=== PATIENT | female | born 1975 | race Caucasian/White ===

== ENCOUNTER → 2017-03-28 18:40 | Outpatient (CLI) | payer OTHER, SELFPAY ==
[2017-03-28 21:18] LABS: Chlamydia Trachomatis by PCR Negative (Negative); Neisserai gonorrhoeae by PCR Negative (Negative); Probe Check PASS; Sample Adequacy Control PASS; Specimen Processing Control PASS
== END ==
PROVIDERS: Visit Provider Nurse Practitioner Women's Health
DX: Z11.3 Encounter for screening for infections with a predominantly sexual mode of transmission (principal)
CPT/HCPCS: 87491; 87591

== ENCOUNTER → 2017-04-10 16:08 | Outpatient (CLI) | payer OTHER, SELFPAY ==
--- NOTE | 2017-04-10 16:10 | US_ITS ---
STUDY: ULTRASOUND TRANSVAGINAL CLINICAL: Female, 42 years old. Heavy menses TECHNIQUE: Transvaginal COMPARISON: None. FINDINGS: Uterus is enlarged, measuring 13.8 x 6.9 x 3.8 cm. At least 5 uterine fibroids are seen, the largest measuring 4.4 x 3.8 x 3.5 cm. Normal endometrial thickness measuring 7 mm. There are no endometrial masses, and there is no fluid in the endometrial cavity. There is a cervical nabothian cyst. Right ovary measures 3.9 x 2.2 x 1.8 cm. There are multiple right ovarian cysts, the largest measuring 1.7 x 1.6 x 1.3 cm. Normal left ovary, measuring 2.8 x 1.8 x 1.2 cm. . There is no free fluid in the pelvis. US/Transvaginal Non- IMPRESSION: Multiple uterine fibroids. Cervical nabothian cysts. Multiple right ovarian cysts, the largest measuring 1.7 x 1.6 x 1.3 cm. Electronically Signed: Patrice Hoyt MD at 20:59 EST , Service support ,
--- NOTE | 2017-04-10 16:10 | US_ITS ---
STUDY: ULTRASOUND TRANSVAGINAL CLINICAL: Female, 42 years old. Heavy menses TECHNIQUE: Transvaginal COMPARISON: None. FINDINGS: Uterus is enlarged, measuring 13.8 x 6.9 x 3.8 cm. At least 5 uterine fibroids are seen, the largest measuring 4.4 x 3.8 x 3.5 cm. Normal endometrial thickness measuring 7 mm. There are no endometrial masses, and there is no fluid in the endometrial cavity. There is a cervical nabothian cyst. Right ovary measures 3.9 x 2.2 x 1.8 cm. There are multiple right ovarian cysts, the largest measuring 1.7 x 1.6 x 1.3 cm. Normal left ovary, measuring 2.8 x 1.8 x 1.2 cm. . There is no free fluid in the pelvis. US/Pelvic (Non ) IMPRESSION: Multiple uterine fibroids. Cervical nabothian cysts. Multiple right ovarian cysts, the largest measuring 1.7 x 1.6 x 1.3 cm. Electronically Signed: Patrice Hoyt MD at 20:59 EST , Service support ,
== END ==
PROVIDERS: Visit Provider Nurse Practitioner Women's Health
DX: N92.0 Excessive and frequent menstruation with regular cycle (principal)
CPT/HCPCS: 76830; 76856; 93976

== ENCOUNTER → 2017-04-17 23:08 | Outpatient (CLI) | payer OTHER, SELFPAY ==
--- NOTE | 2017-04-17 | EMB_PTH ---
PATIENT: ERNESTO COFFMAN LOC: [facility] U#:[id number] AGE/SX: 50/F ROOM: RE04/17/[address]: EFREN Mai : 1975 BED: DIS: SPEC #: [id number] RECD: 04/17/17 22:08 STATUS: JOANNA BARRETT #: [id number] MARTIN: 04/17/17 00:[address]: Lyric Matos NP DEPT: SURGICAL PATHOLOGY RECD BY: Malcom Goldberg Tissues: Endometrium, NOS Procedures: Surgery Specimen Level IV HEADER OPERATION: Endometrial biopsy PRE-OP DIAGNOSIS: Abnormal uterine bleeding TISSUE SUBMITTED: Endometrial MICROSCOPIC DIAGNOSIS Endometrium, biopsy: Secretory endometrium. AM:antelmo 04/19/17 MICROSCOPIC DESCRIPTION Slides are reviewed. GROSS DESCRIPTION Received is one container labeled with the patient's name and not further designated. The specimen consists of multiple cores of dalal-brown soft tissue that in aggregate measure 2 x 1.3 x 0.3 cm. The specimen is totally submitted in one cassette. / ROBERTA:antelmo 04/18/17 TC:5 CPT: 87474
[2017-04-21 07:16] LABS: HPV APTIMA, High Risk Negative (Negative)
== END ==
PROVIDERS: Visit Provider Nurse Practitioner Women's Health
DX: Z12.4 Encounter for screening for malignant neoplasm of cervix (principal); N93.9 Abnormal uterine and vaginal bleeding, unspecified
CPT/HCPCS: 88175; 88305; G0145

== ENCOUNTER → 2017-05-04 17:10 | Outpatient (CLI) | payer OTHER, SELFPAY ==
--- NOTE | 2017-05-04 17:12 | HPBI_ITS ---
MAMMOGRAPHY - BILATERAL SCREENING REASON FOR EXAM: Female, 42 years old. Routine annual screening examination. PERTINENT HISTORY: Non-contributory. TECHNIQUE: Digital bilateral breast marv (3D mammographic acquisition) in the CC and MLO projections. 2-D mediolateral oblique (MLO) and craniocaudad (CC) views of both breasts were obtained. CAD: Full Field Digital Mammography with Computer Added Detection was performed. COMPARISON: No comparison mammograms available at this time. If any prior films become available, an addendum to this report can be generated. FINDINGS: Breast Composition: The breasts are heterogeneously dense, which may obscure small masses. There are no dominant masses or suspicious calcifications. Small bilateral benign appearing axillary lymph nodes. No other significant abnormalities are identified. HPBI/SCREENING MAMM (CAD), BILAT IMPRESSION: Negative screening mammogram. Yearly followup mammogram recommended. (A) ASSESSMENT CATEGORY: BIRADS Category 1: Negative. A letter regarding these results will be sent to the patient by the facility within 30 days. Approximately 10% of breast cancers are not detected by mammography. A normal mammogram should not delay biopsy of a clinically suspicious abnormality. [id number] Electronically Signed: Dawood Burnett MD at 8:02 EST Tel [phone], Service support ,
== END ==
PROVIDERS: Visit Provider Nurse Practitioner Women's Health
DX: Z12.31 Encounter for screening mammogram for malignant neoplasm of breast (principal)
CPT/HCPCS: 77063; 77067

== ENCOUNTER 2017-06-21 10:49 | Day surgery (SDC) | payer OTHER, SELFPAY ==
[2017-06-17 11:38] LABS: International Normalized Ratio 0.9; Prothrombin Time (Protime)PT. 12.4 SECONDS (11.7-14.9)
[2017-06-17 11:39] LABS: Hematocrit 36.9 % (37-47); Hemoglobin 11.7 g/dl (12.0-15.0); Mean Corp Hgb Conc 31.7 g/gl (32-36); Mean Corpuscular Hgb 25.5 pg (27.0-32.0); Mean Corpuscular Volume 80.6 fL (81-99); Mean Platelet Vol. 9.4 fl (6.2-12.0); Partial Thromboplast Time 28.5 Seconds (24.1-36.2); Platelet Count 295 K/mm3 (150-450); RBC Distribution Width CV 16.8 % (11.6-14.6); RBC Distribution Width SD 49.5 fl (35.1-43.9); Red Blood Count 4.58 M/mm3 (4.2-5.4); Scan Indicated on CBC? Y/N NO
[2017-06-17 12:01] LABS: AST(SGOT) 15 U/L (15-37); Alanine Aminotransfer ALT/SGPT 23 U/L (13-56); Albumin, Serum 3.5 g/dL (3.2-5.0); Alkaline Phosphatase 51 U/L (45-117); Bilirubin, Direct 0.13 mg/dL (0.00-0.30); Globulin 3.2 g/dL (2.2-4.2); Protein, Total 6.7 g/dL (6.4-8.2)
[2017-06-21] VITALS (12 sets, daily range): BP systolic 108–122; BP diastolic 63–81; PULSE 66–86; RESP 16–18; TEMP 36.1–36.6; O2SAT 94–99; BMI 29.5
--- NOTE | 2017-06-21 05:08 | PCM.HPOB.BLA ---
- Problem List (1) Abnormal uterine bleeding Status: Acute Comment: plan lavh bs cystoscopy (2) Uterine fibroid Status: Chronic Qualifiers: Comment: plan lavh bs cystosocpy History and Physical Date of Admission: 06/21/17 Vital Signs 05/12/17 Blood Pressure 121/76 05/12/17 Height 5 ft 5 in 05/12/17 Weight: 180 lb 2 oz 05/12/17 Body Mass Index (BMI) 29.9 05/12/17 Blood Pressure 121/76 05/12/17 Height 5 ft 5 in 05/12/17 Blood Pressure 121/76 Intake Visit Reasons: SURGICAL CONSULT Chief Complaint: Hyst Consult Is patient in pain?: No Allergies Penicillins Allergy (Verified 05/12/17 10:23) Angioedema Sulfa (Sulfonamide Antibiotics) Allergy (Verified 05/12/17 10:23) Angioedema mercury (elemental) Adverse Reaction (Verified 05/12/17 10:23) Other Medications ginkgo biloba 40 mg tablet 40 mg PO TID 03/28/17 [History Confirmed 05/12/17] vit B12 50 mcg-iodine 75 mcg-mag 100 xm-oilh-qqeiuldw-herb 193 capsule cap PO 03/28/17 [History Confirmed 05/12/17] Is last menstrual period known: Yes Last Menstral Period: 04/27/17 Post menopausal: No Patient : No : No PFSH Medical History Migraine (Chronic) Surgical History H/O tubal ligation (Resolved ~2000) History of appendectomy (Resolved ~1984) History of cholecystectomy (Resolved ~1998) History of tonsillectomy (Resolved ~1976) Family History Unknown No problems noted. Social History adopted: Yes number of children: 3 Smoking Status: Current every day smoker second hand exposure: No alcohol intake: never substance use type: does not use what type of physical activity do you participate in: walking frequency: 5-6 times per week seatbelt use: always do you feel safe at home: Yes HPI SURGICAL CONSULT: Details: ERNESTO COFFMAN is a 42 year old who presents for heavy vaginal bleeding. she has painful heavy menses increasing ove rthe last few months and has an enlarged multiple fibroid uterus on ultrasound. she was seen by melvina and referred for surgical management. patient wants to proceed with surgery. Female Reproductive History Last Menstral Period: 04/27/17 Questions: Metorrhagia: No, Sexually active: Yes Pregancy History 3 Elective abortions Hx Para 3 Spontaneous abortions Hx # Term Pregnancies 3 Ectopic pregnancies Hx # Pregnancies Multiple births # of living children 3 Past Pregnancies Del. Date Name GA/Weeks Outcome Route Bth Weight Infant Gen Labor Lgth Anesthesia Del Locatn Provider FOB 12/23/95 Eber 10/07/97 Leah 12/07/99 Jose ROS Const Constitutional: Denies poor appetite, headache(s), fever(s), increased appetite, weight gain, weight loss or fatigue Cardio Card: Denies chest pain Resp Resp: Denies dyspnea or cough GI GI: Reports as per HPI; denies vomiting, nausea, abdominal pain or constipation : Reports as per HPI; denies urinary urgency, vaginal discharge, urinary frequency, vaginal itching, vaginal odor, vaginal dryness, urinary incontinence, urinary hesitancy, difficulty urinating, painful urination or nipple discharge Skin Skin/Breast: Denies breast lump, breast pain, breast skin changes, nipple discharge or change in hair Exam Const General: cooperative, healthy appearing, comfortable, no acute distress, well developed Nutritional Appearance: average body habitus Orientation: alert [facility] Head: normal to inspection, normocephalic Neck Neck: normal visual inspection, trachea midline Thyroid: thyroid normal Resp Effort & Inspection: normal respiratory effort GI Inspection: normal to inspection, non-distended Palpation: soft, no hepatosplenomegaly General: bladder normal to palpation External Female Exam: normal external appearance, normal appearance of the urethra Urethra: normal appearance of the urethra, normal palpation, no discharge Speculum Exam - Vagina: normal appearance of the vagina, normal vaginal discharge Speculum Exam - Cervix: normal appearance of the cervix, nontender Bimanual Exam- Vagina & Uterus: bladder normal to palpation, No cervical tenderness, normal bimanual exam, uterine mobility normal, uterine consistency normal, normal cervical palpation, uterus non-tender, uterus enlarged (14 week size with multiple fibroids), uterus nodular Bimanual Exam- Adnexa, other: normal adnexae, adnexae mobile, no adnexal masses, pelvic support normal Pelvic Support: normal Skin General: no rashes or lesions noted Assessment & Plan Problems 1. Abnormal uterine bleeding N93.9 plan lavh bs cystoscopy 2. Intramural and subserous leiomyoma of uterus D25.1; D25.2 plan lavh bs cystosocpy Plan plan lavh bs cystoscopy discussed surgical risks including risks of anesthesia, infection, bleeding, injury to bowel, bladder or blood vessels, and patient wishes to proceed with surgery. Coding Level of Care Code Off vis,est,level 4 Diagnoses Abnormal uterine bleeding N93.9 Intramural and subserous leiomyoma of uterus D25.1; D25.2 Uterine leiomyoma location: intramural and subserous 06/21/17 I have seen the patient and there are no clinically relevant updates that need to be made
[2017-06-21] MEDS: Phenazopyridine 95 MG Tablet PO (11:31)
--- NOTE | 2017-06-21 13:15 | HYST_PTH ---
PATIENT: ERNESTO COFFMAN LOC: [facility] U#:[id number] AGE/SX: 42/F ROOM: RE06/21/[address]: Dr. Becky Zavala MD : 1975 BED: DIS: 06/22/2017 SPEC #: [id number] RECD: 06/21/17 16:17 STATUS: JOANNA BARRETT #: [id number] MARTIN: 06/21/17 13:[address]: Becky Zavala DEPT: SURGICAL PATHOLOGY RECD BY: Rajesh Mercedes ENTERED: 06/22/17 08:56 SP TYPE: HYSTERECT OTHR DR: No Primary Care Phys Tissues: Uterus, NOS Procedures: Surgery Specimen Level V HEADER OPERATION: Laparoscopic assisted vaginal hysterectomy, bilateral salpingectomy PRE-OP DIAGNOSIS: Abnormal uterine bleeding, uterine fibroid TISSUE SUBMITTED: Uterus, cervix, bilateral fallopian tubes MICROSCOPIC DIAGNOSIS Uterus, hysterectomy: Cervix ? nabothian cysts and mild chronic inflammation. Endometrium ? proliferative endometrium. Myometrium ? leiomyomas and focal superficial adenomyosis. Right and left fallopian tubes ? no pathologic change. AM:antelmo 06/23/17 MICROSCOPIC DESCRIPTION Slides are reviewed. GROSS DESCRIPTION Received in fixative is one container labeled with the patient's name and designated uterus. The specimen consists of a uterus with attached cervix and portions of right and left fallopian tubes. The uterus with cervix measures 11.5 x 7.5 x 7 cm and weighs 247.2 gm. The ectocervix is oval in contour. The endocervical canal measures 3.5 cm in length and is grossly unremarkable. The triangular endometrial cavity measures 6 x 3.3 cm. The endometrium is light dalal, velvety and glistening and measures up to 0.2 cm in thickness. The myometrium measures 2.5 cm in average thickness and is distorted by multiple spherical rubbery nodules ranging in size from 0.5 to 2.5 cm in greatest dimension. The nodules are intramural, subserosal and submucosal in location. Cut sections of the nodules reveal a whorled appearance without areas of cyst formation or necrosis. The right fallopian tube appears to be discontinuous in its distal portion and measures 3 cm in length and 0.6 cm in average diameter. A normal fimbriated is visible. The left fallopian tube is similar in appearance and measures 3 cm in length and 0.7 cm in average diameter. Armhole Baster Hand sections are submitted as follows: 1 - anterior cervix, 2 - posterior cervix, 3 & 4 - anterior uterine wall, 5 & 6 - posterior uterine wall, 7 ? largest myometrial mass, 8 ? second largest myometrial mass, 9 ? third largest myometrial mass, 10 ? right and left fallopian tubes, right fallopian tube inked in black ink. / AM:antelmo 06/22/17 TC:1 CPT: 31586
[2017-06-21] MEDS: Clindamycin 900 MG/50 ML BAG 75 MG IV (13:43)
[2017-06-21] MEDS: Vasopressin 20 UNITS/ML Vial (14:30)
[2017-06-21] MEDS: Bupivacaine Mpf 0.5% 30 ML VIAL (15:10)
[2017-06-21] MEDS: Ketorolac 30 MG/ML Syringe IV ×2 (17:53→23:53)
[2017-06-21] MEDS: Lactated Ringers 1,000 ML 125 ML IV (19:31)
[2017-06-21] MEDS: Ondansetron 4 MG/2 ML Vial IV (19:51)
[2017-06-21] MEDS: Acetaminophen 500 MG Tablet 1000 MG PO (21:14)
[2017-06-21] MEDS: 0.9% Normal Saline 1,000 ML 500 ML IV (21:16)
[2017-06-22 03:00] VITALS: BP 101/65; PULSE 83; RESP 16; TEMP 37.2; O2SAT 95
--- NOTE | 2017-06-22 04:16 | PCM.OPRPT ---
Problem List (1) Abnormal uterine bleeding Status: Acute Comment: plan lavh bs cystoscopy (2) Uterine fibroid Status: Chronic Qualifiers: Comment: plan lavh bs cystosocpy Report of Operation Date of Procedure: 06/21/17 Pre-Operative Diagnosis: aub fibroids Post-Operative Diagnosis: same Surgery/Procedure Performed:: lavh bs cystoscopy Description of Surgical Findings:: enlarged uterus beadworker: Surjit Lundberg Type of Anesthesia:: General Special Medications: none Specimen's removed: uterus tubs Drains: shipley Estimated Blood Loss (mL): 150 Fluids Replaced: crystalloid Description of Procedure: Patient received preoperative antibiotics and SCDs were on preoperatively. Patient was taken back to the operating room and placed in the dorsal lithotomy position. General anesthesia was induced and patient was prepped and draped in normal sterile fashion. Uterine manipulator was placed inside the uterus and Shipley catheter placed in the bladder. The umbilicus was grasped with towel clamps and an intraumbilical incision was made after injecting with quarter percent Marcaine and a Veress needle entered into the abdomen confirmed to be intra-abdominal with a low opening pressure. Abdomen was insufflated with CO2 gas and the Veress needle removed and the 5 mm trocar was placed under direct visualization without complication. Right and left lower quadrants were transilluminated and injected with quarter percent Marcaine and 5 mm ports placed under direct visualization. Pelvis was well visualized see operative findings for additional information. Bilateral fallopian tubes were identified and transected with the LigaSure device across the mesosalpinx to the level of the utero-ovarian ligament which was also transected with the LigaSure device. The broad ligament was opened up by transecting the round ligament bilaterally and skeletonizing the uterine vessels bilaterally and creating a bladder flap using the LigaSure device. The uterine arteries were transected bilaterally with good visualization of the bladder and the ureters were seen to be inferior lateral to the operative area. Attention was then paid to the vaginal portion of the procedure and the cervix was grasped with Crispin clamps and circumferentially injected with dilute vasopressin. A circumferential incision was made and the vaginal mucosa was mobilized off posteriorly and the cul-de-sac entered into sharply and a longneck speculum placed. The anterior cul-de-sac was then identified and entered into sharply. The uterosacral ligaments were clamped cut and suture ligated with 0 Monocryl bilaterally followed by the cardinal ligaments which were clamped cut and suture ligated bilaterally with 0 Monocryl. The uterus serially descended and was removed without difficulty with minimal morcellation. Pelvic sidewall pedicles were checked and noted to have excellent hemostasis. The vaginal mucosa was reapproximated incorporating the posterior peritoneum. This was reapproximated using 0 Vicryl [id number] sutures. Excellent hemostasis was noted. The cystoscopy was then performed and bilateral ureteral strong spray was noted and the bladder was noted to have no abnormality or lesions seen. Shipley catheter was replaced and then attention paid to the abdominal portion of the procedure again. The pelvis and cul-de-sac was well visualized and no significant active bleeding noted but some raw areas were seen on the peritoneum and therefore Marco Antonio was applied. Pressure was taken down and the areas visualized and noted of excellent hemostasis. All ports were removed under direct visualization without complication and the abdomen was desufflated of air. The instruments removed from the abdomen and the vagina vaginal sweep was negative. Port sites on the abdomen were closed with 4-0 Monocryl interrupted sutures and Steri's and windows were applied. She was awoken and taken recovery in stable condition. Grafts/Implants Used: marco antonio - Complications none - Admit VTE Documentation VTE Present on Admission: No VTE Mechan Device Prophylaxis: SCD's
--- NOTE | 2017-06-22 04:19 | OP.PCM_ITS ---
Problem List (1) Abnormal uterine bleeding Status: Acute Comment: plan lavh bs cystoscopy (2) Uterine fibroid Status: Chronic Qualifiers: Comment: plan lavh bs cystosocpy Report of Operation Date of Procedure: 06/21/17 Pre-Operative Diagnosis: aub fibroids Post-Operative Diagnosis: same Surgery/Procedure Performed:: lavh bs cystoscopy Description of Surgical Findings:: enlarged uterus arbor press operator: Surjit Lundberg Type of Anesthesia:: General Special Medications: none Specimen's removed: uterus tubs Drains: shipley Estimated Blood Loss (mL): 150 Fluids Replaced: crystalloid Description of Procedure: Patient received preoperative antibiotics and SCDs were on preoperatively. Patient was taken back to the operating room and placed in the dorsal lithotomy position. General anesthesia was induced and patient was prepped and draped in normal sterile fashion. Uterine manipulator was placed inside the uterus and Shipley catheter placed in the bladder. The umbilicus was grasped with towel clamps and an intraumbilical incision was made after injecting with quarter percent Marcaine and a Veress needle entered into the abdomen confirmed to be intra-abdominal with a low opening pressure. Abdomen was insufflated with CO2 gas and the Veress needle removed and the 5 mm trocar was placed under direct visualization without complication. Right and left lower quadrants were transilluminated and injected with quarter percent Marcaine and 5 mm ports placed under direct visualization. Pelvis was well visualized see operative findings for additional information. Bilateral fallopian tubes were identified and transected with the LigaSure device across the mesosalpinx to the level of the utero-ovarian ligament which was also transected with the LigaSure device. The broad ligament was opened up by transecting the round ligament bilaterally and skeletonizing the uterine vessels bilaterally and creating a bladder flap using the LigaSure device. The uterine arteries were transected bilaterally with good visualization of the bladder and the ureters were seen to be inferior lateral to the operative area. Attention was then paid to the vaginal portion of the procedure and the cervix was grasped with Crispin clamps and circumferentially injected with dilute vasopressin. A circumferential incision was made and the vaginal mucosa was mobilized off posteriorly and the cul-de- sac entered into sharply and a longneck speculum placed. The anterior cul-de- sac was then identified and entered into sharply. The uterosacral ligaments were clamped cut and suture ligated with 0 Monocryl bilaterally followed by the cardinal ligaments which were clamped cut and suture ligated bilaterally with 0 Monocryl. The uterus serially descended and was removed without difficulty with minimal morcellation. Pelvic sidewall pedicles were checked and noted to have excellent hemostasis. The vaginal mucosa was reapproximated incorporating the posterior peritoneum. This was reapproximated using 0 Vicryl figure-of- eight sutures. Excellent hemostasis was noted. The cystoscopy was then performed and bilateral ureteral strong spray was noted and the bladder was noted to have no abnormality or lesions seen. Shipley catheter was replaced and then attention paid to the abdominal portion of the procedure again. The pelvis and cul-de-sac was well visualized and no significant active bleeding noted but some raw areas were seen on the peritoneum and therefore Marco Antonio was applied. Pressure was taken down and the areas visualized and noted of excellent hemostasis. All ports were removed under direct visualization without complication and the abdomen was desufflated of air. The instruments removed from the abdomen and the vagina vaginal sweep was negative. Port sites on the abdomen were closed with 4-0 Monocryl interrupted sutures and Steri's and windows were applied. She was awoken and taken recovery in stable condition. Grafts/Implants Used: marco antonio - Complications none - Admit VTE Documentation VTE Present on Admission: No VTE Mechan Device Prophylaxis: SCD's
--- NOTE | 2017-06-22 04:29 | PCM.DC.VHY ---
Discharge Diet: No Restrictions Discharge Activity: Return to Normal Activity, May Not Drive, May Shower May resume sexual activity in: 6-8 weeks Call your doctor if your incision/area has: Continuous Slow Oozing, Sudden Increased Bleeding, Increased Pain/ Swelling, Increased Redness, Foul Smelling Discharge Call your doctor if you observe: Fever of 101 or Higher, Inability to urinate, Inability to have a bowel movement, Using more than one pad per hour Allergies/Adverse Reactions: Allergies Penicillins Allergy (Verified 06/14/17 14:10) Angioedema Sulfa (Sulfonamide Antibiotics) Allergy (Verified 06/14/17 14:10) Angioedema mercury (elemental) Adverse Reaction (Verified 06/14/17 14:10) Other Medications to take at Discharge vit B12 50 mcg-iodine 75 mcg-mag 100 sx-byis-ebpeculx-herb 193 capsule 1 cap PO DAILY 03/28/17 Naproxen [Naprosyn] 250 - 500 mg PO Q8H PRN PRN #30 tab 06/22/17 Oxycodone HCl/Acetaminophen [Percocet 5-325] 2 tablet PO Q4H PRN PRN 7 Days #28 tablet 06/22/17 The following prescriptions were given: Oxycodone HCl/Acetaminophen [Percocet 5-325] 2 tablet PO Q4H PRN PRN 7 Days #28 tablet PRN Reason: Moderate-Severe pain Naproxen [Naprosyn] 250 - 500 mg PO Q8H PRN PRN #30 tab PRN Reason: MILD PAIN Primary Care Physician: Care Physician,No Primary [Primary Care Provider] - Please Follow Up With: Becky Zavala MD - [phone]
[2017-06-22] MEDS: Lactated Ringers 1,000 ML 125 ML IV (04:38)
[2017-06-22 06:21] LABS: Hematocrit 32.1 % (37-47); Hemoglobin 10.7 g/dl (12.0-15.0); Mean Corp Hgb Conc 33.3 g/gl (32-36); Mean Corpuscular Hgb 26.6 pg (27.0-32.0); Mean Corpuscular Volume 79.9 fL (81-99); Mean Platelet Vol. 10.2 fl (6.2-12.0); Platelet Count 287 K/mm3 (150-450); RBC Distribution Width CV 16.3 % (11.6-14.6); RBC Distribution Width SD 46.9 fl (35.1-43.9); Red Blood Count 4.02 M/mm3 (4.2-5.4); White Blood Count 12.1 K/mm3 (4.4-11.0)
[2017-06-22 06:32] LABS: Scan Indicated on CBC? Y/N NO
[2017-06-22] MEDS: Acetaminophen 500 MG Tablet 1000 MG PO (06:49)
[2017-06-22] MEDS: Ketorolac 30 MG/ML Syringe IV (06:50)
[2017-06-22 07:04] VITALS: O2SAT 94
[2017-06-22 08:20] VITALS: BP 103/64; PULSE 62; RESP 16; TEMP 37.2; O2SAT 97
== END 2017-06-22 11:43 | disposition home or self-care (01) ==
LOC: SDC 10:51 → AC 10:51 → MS3 06-22 09:23
PROVIDERS: Visit Provider Obstetrics & Gynecology
PROC: 0UT9FZZ Resection of Uterus, Via Natural or Artificial Opening With Percutaneous Endoscopic Assistance (ICD-10-PCS; CPT 58552; principal; 2017-06-21 12:50)
DX: D25.1 Intramural leiomyoma of uterus (principal); D25.2 Subserosal leiomyoma of uterus; N88.8 Other specified noninflammatory disorders of cervix uteri; N80.0 Endometriosis of uterus; F17.200 Nicotine dependence, unspecified, uncomplicated
CPT/HCPCS: 00940; 58552; 36415; 80076; 85027; 85610; 85730; 86850; 86900; 88307; 97802; J7030; J7120; J2405

== ENCOUNTER → 2017-07-05 09:34 | Outpatient (CLI) | payer OTHER, SELFPAY ==
[2017-07-05 12:29] LABS: Absolute Lymphocyte Count 1.52 X10^3/ul (0.83-4.51); Absolute Neutrophil Count 5.6 X10^3/uL (2.0-7.7); Basophil# 0.03 X10^3/uL; Basophil% 0.4 % (0-1); Eosinophil# 0.23 X10^3/uL; Eosinophils% 2.9 % (0-5); Hematocrit 34.8 % (37-47); Hemoglobin 11.3 g/dl (12.0-15.0); Lymphocyte # 1.52 X10^3/ul (4.0); Lymphocyte % 19.4 % (19-41); Mean Corp Hgb Conc 32.5 g/gl (32-36); Mean Corpuscular Hgb 25.8 pg (27.0-32.0); Mean Corpuscular Volume 79.5 fL (81-99); Mean Platelet Vol. 10.3 fl (6.2-12.0); Monocyte% 6.4 % (0-10); Neutrophil # 5.56 X10^3/uL (2.7-7.7); Neutrophil % 70.8 % (47-70); Platelet Count 346 K/mm3 (150-450); RBC Distribution Width CV 16.4 % (11.6-14.6); RBC Distribution Width SD 46.8 fl (35.1-43.9); Red Blood Count 4.38 M/mm3 (4.2-5.4); White Blood Count 7.9 K/mm3 (4.4-11.0)
[2017-07-05 12:32] LABS: POSITIVE COUNT NO; POSITIVE DIFFERENTIAL NO; POSITIVE MORPHOLOGY NO
== END ==
PROVIDERS: Visit Provider Obstetrics & Gynecology
DX: R07.9 Chest pain, unspecified (principal)
CPT/HCPCS: 85025; 85379

== ENCOUNTER → 2017-07-06 08:57 | Outpatient (CLI) | payer OTHER, SELFPAY ==
--- NOTE | 2017-07-06 08:59 | EKG12_ITS ---
Test Reason : CP Blood Pressure : / mmHG Vent. Rate : 064 BPM Atrial Rate : 064 BPM P-R Int : 146 ms QRS Dur : 072 ms QT Int : 374 ms P-R-T Axes : 050 072 060 degrees QTc Int : 385 ms Normal sinus rhythm with sinus arrhythmia Normal ECG Confirmed by ALEE MILLER, YEVGENIY ([id number]), tape editor MANNIE MENDEZ ([id number]) on 07/07/2017 2:00:24 PM Referred By: Harvinder Gonzalez Confirmed By:YEVGENIY VICKERS MD
== END ==
PROVIDERS: Family Provider Nurse Practitioner Family; PCP Nurse Practitioner Family; Visit Provider Nurse Practitioner Family
DX: R07.9 Chest pain, unspecified (principal)
CPT/HCPCS: 93005

== ENCOUNTER → 2017-07-07 08:02 | Outpatient (CLI) | payer OTHER, SELFPAY ==
--- NOTE | 2017-07-07 08:03 | CT_ITS ---
STUDY: CTA CHEST REASON FOR EXAM: Female, 42 years old. Left upper chest pain and elevated d-dimer. Recent hysterectomy. RADIATION DOSAGE (If Supplied By Facility): CTDIvol = ( 14.21 ) mGy, DLP = ( 520.32 ) mGycm TECHNIQUE: The examination was performed with the intravenous administration of 100mL ml of Isovue 370 contrast material. Post-processing of the angiographic images was performed, with multiplanar reformation and 3D reconstruction. Individualized dose optimization techniques were used for this CT. COMPARISON: None. FINDINGS: Normal enhancement of the main pulmonary artery and right and left pulmonary arteries. Normal enhancement of the bilateral peripheral pulmonary arteries. There is no demonstrated pulmonary embolism. Normal thoracic aorta and visualized great vessels. There is no demonstrated aortic dissection. Normal heart and pericardium. Normal mediastinum. Normal hilar regions. Normal visualized trachea and bronchi. The lungs are well expanded. Minimal increased markings in the anterior lateral aspect of the right middle lobe suggestive of mild atelectasis. Normal pleura. Normal chest wall structures. Normal osseous structures. The patient is status post cholecystectomy. CT/CTA Chest W/WO Contrast IMPRESSION: Findings suggestive of mild right middle lobe atelectasis. Electronically Signed: Dawood Burnett MD at 9:18 EDT Tel [phone], Service support ,
== END ==
PROVIDERS: Family Provider Nurse Practitioner Family; PCP Nurse Practitioner Family; Visit Provider Nurse Practitioner Family
DX: R79.89 Other specified abnormal findings of blood chemistry (principal); R06.02 Shortness of breath; R07.9 Chest pain, unspecified
CPT/HCPCS: 71275; Q9967

== ENCOUNTER → 2021-01-20 16:01 | Outpatient (CLI) | payer BC, SELFPAY ==
[2021-01-20 16:35] LABS: Absolute Lymphocyte Count 2.09 X10^3/uL (0.83-4.51); Absolute Neutrophil Count 6.5 X10^3/uL (2.0-7.7); Basophil# 0.05 X10^3/uL; Basophil% 0.5 % (0-1); Eosinophils% 2.1 % (0-5); Hematocrit 43.3 % (37-47); Hemoglobin 14.9 g/dL (12.0-15.0); Lymphocyte # 2.09 X10^3/ul (0.83-4.51); Mean Corp Hgb Conc 34.4 g/dL (32-36); Mean Corpuscular Hgb 31.4 pg (27.0-32.0); Mean Corpuscular Volume 91.2 fL (81-99); Mean Platelet Vol. 9.8 fl (6.2-12.0); Monocyte# 0.66 X10^3/uL; Monocyte% 6.9 % (0-10); NRBC Flagged by Analyzer 0 % (0-5); Neutrophil # 6.49 X10^3/uL (2.7-7.7); Neutrophil % 68.2 % (47-70); Platelet Count 252 K/mm3 (150-450); RBC Distribution Width CV 12.7 % (11.6-14.6); RBC Distribution Width SD 42.3 fl (35.1-43.9); Red Blood Count 4.75 M/mm3 (4.2-5.4); White Blood Count 9.5 K/mm3 (4.4-11.0)
[2021-01-20 17:10] LABS: AST(SGOT) 16 U/L (15-37); Alanine Aminotransfer ALT/SGPT 24 U/L (13-56); Albumin, Serum 3.5 g/dL (3.2-5.0); Alkaline Phosphatase 46 U/L (45-117); Anion Gap 6 (5-15); BUN 12 mg/dL (7-18); BUN/Creat Ratio 13.9 RATIO (10-20); Calcium,Total 8.8 mg/dL (8.5-10.1); Chloride 107 mmol/L (98-107); Cholesterol 167 mg/dL (200); Creatinine, Serum 0.87 mg/dL (0.55-1.02); EST Glomerular Filtration Rate 75 mL/min (>60); Est Glom Filt Rate - Afr Amer 90 mL/min (>60); Globulin 3.5 g/dL (2.2-4.2); Glucose 99 mg/dL (74-106); High Density Lipoprotein 51 mg/dL; Potassium 3.6 mmol/L (3.5-5.1); Sodium Level 138 mmol/L (136-145); Triglycerides 75 mg/dL; Very Low Density Lipoprotein 15 mg/dL (5-40)
== END ==
PROVIDERS: PCP Nurse Practitioner Family; Visit Provider Internal Medicine
DX: Z00.00 Encounter for general adult medical examination without abnormal findings (principal)
CPT/HCPCS: 36415; 80053; 80061; 85025

== ENCOUNTER → 2021-08-02 | Outpatient (CLI) | payer BC, SELFPAY ==
--- NOTE | 2021-08-02 16:09 | RAD_ITS ---
STUDY: X-RAY - RIGHT KNEE REASON FOR EXAM: Female, 46 years old. Injury. Patellar pain. TECHNIQUE: 4 view(s) of the knee. COMPARISON: None. FINDINGS: Normal visualized distal femur. Normal visualized proximal tibia and fibula. Normal proximal tibiofibular articulation. Mild medial compartmental arthrosis. Normal lateral femorotibial compartment. Mild arthrosis of the patellofemoral compartment. The soft tissue structures are unremarkable. RAD/Knee 4 or More Views IMPRESSION: Mild medial and patellofemoral compartmental arthrosis. No acute abnormality, chondrocalcinosis or erosive changes. Electronically Signed: Daniel Grant MD at 14:07 EDT ,
[2021-08-02 17:11] LABS: T4 Free Direct 1.14 ng/dL (0.76-1.46); Thyroid Stim Hormone (TSH) 1.47 uIU/mL (0.358-3.74)
== END | disposition home or self-care (01) ==
PROVIDERS: PCP Nurse Practitioner Family; Referring Provider Physician Assistant; Visit Provider Physician Assistant
DX: M25.561 Pain in right knee (principal); Z13.29 Encounter for screening for other suspected endocrine disorder
CPT/HCPCS: 36415; 73564; 84439; 84443

== ENCOUNTER 2021-08-17 15:57 | Outpatient (RCR) | payer BC, SELFPAY ==
--- NOTE | 2021-08-25 10:12 | HP.PTEVAL ---
Patient's Visit Information ERNESTO COFFMAN is a 46 year old F referred to Physical Therapy by [facility] with a diagnosis of L IT band syndrome with greater trochanteric bursitis, patellar tendonitis. Date of Evaluation: 08/17/21 Physical Therapist: Julio Cartagena DPT - Visit Plan Frequency: 2x /Week Duration: 4 Weeks Plan: Start with inhibition to L TFL/IT band, glute med/max strengthening, TFL and HS stretching. - Subjective Pt. is here today for her initial evaluation with diagnosis of L IT band syndrome with greater trochanteric bursitis, patellar tendonitis. Pt. reports having increased symptoms for ~5 weeks now, which is now effecting her ability to complete her gym work outs. She reports pain at her lateral L knee, L anterior knee and lateral hip at times. She reports having pain with lying on her L side, any LB lifting and elliptical. She denies mech of injury. She reports increased pain with standing, walking, stairs, squatting. Denies N/T. Pt. reports symptoms that increase throughout the day. She is hopeful to reduce symptoms in order to get back to gym exercises without limitations. - Pain L knee Pain Intensity (Out of 10): 2 Pain Intensity Range: 0, 6 L hip Pain Intensity (Out of 10): 1 Pain Intensity Range: 0, 4 - Objective POSTURE: Pt. has decent posture in stance. No shifting noted, normal wt. shift between B Les. PALPATION: tenderness at lateral insertion of IT band at knee, patellar tendon, and greater trochanter on L side. Mild piriformis pain noted as well. No pain noted throughout lumbar spine. No stiffness to lumbar spine with spring testing this date. NEURO: Pt. has normal sensation to light and sharp touch. Pt. has normal reflexes bilaterally. Pt. is able to rise on heels and toes without issues. ROM: Lumbar spine: full ROM without increase in symptoms. R hip: normal no pain with testing. L hip: flexion no issues, abd no issues, ext no issues. Tight HS and tight IT band noted. She also has tightness in L piriformis region as well. Normal L knee ROM, mild pain noted at final 10deg of extension on lateral aspect. MMT: Pt. has decent strength throughout BLEs. Pt. has slight weakness in L glute medius and glute asia. No pain with testing today. GAIT: pt. has fairly normal gait pattern, no antalgic pattern noted. Pt. reports mild increase in symptoms during stance phase. SQUAT: Pt. has increased lateral wt. shift to R side in stance. (noted pain at initial flexion and at ~100deg of flexion). STAIRS: normal reciprocal pattern noted. no pain 1 HR. - Special Tests L Hip Scour: Negative L Hip LILIAN - Intraarticular Pathology: Negative L Hip FADDIR - Labrum: Negative L Hip Trendelenberg - Glut Medius: Negative L Hip Razia - IT Band: Positive L Knee Teri - Meniscus: Negative L Knee Disco Test - Meniscus: Negative L Knee Valgus - MCL: Negative L Knee Varus - LCL: Negative - Balance/Special Test Scores Lower Extremity Functional Score: 37 - Goals Goal 1:: LTG: Pt. to be I with HEP. Goal Time Frame: 4-6 Weeks Goal 2:: STG: Pt. to have full L knee ROM without increase in symptoms. Goal Time Frame: 2-4 Weeks Goal 3:: LTG: Pt. to have increased L glute medius and asia strength to 5/5. Goal Time Frame: 4-6 Weeks Goal 4:: LTG: Pt. to have full IT band length indicated by negative razia's test on L side. Goal Time Frame: 4-6 Weeks - Rehabilitation Potential Physical Therapy Diagnosis: Pt. has signs and symptoms consistent with L IT band syndrome with greater trochanteric bursitis, patellar tendonitis. Pt. has tightness in her IT band, and weakness in her glute medius. I would like her to work on IT stretching and glute medius strengthening. She is to refrain form gym exercises that increase pain. We will work on this progressing back to all previous levels of activities. Rehabilitation Potential: Excellent - Anticipated Interventions Patient/Client Instruction: Educate patient on: Condition, Plan of Care, Risk Factors, Benefits of Fitness Program For the Purpose of:: To improve decision making, To facilitate caregiver knowledge, To improve self management, To prevent re-injury, To improve ability to perform tasks related to life management Therapeutic Exercise to Include: Strength training, Power training, Flexibilty training, Passive ROM, Active ROM, Dynamic Lumbar Stabilization For the Purpose of:: To decrease pain, To decrease swelling/inflammation, To increase ROM, To improve nutrient delivery to tissue, To increase oxygenation perfusion, To improve muscle performance and motor function, To improve ability to perform ADL's Manual Therapy Techniques to Include: Mobilization, Soft tissue mobilization For the Purpose of:: To decrease pain, To decrease swelling/inflammation, To increase ROM, To improve nutrient delivery to tissue, To increase oxygenation perfusion Thank you for the opportunity to evaluate your patient. For Medicare and Medicare HMO plans, please review the plan of care and approve it. It will need to be FAXED BACK to us at [phone] for Medicare purposes. For Medicare only, by signing this I certify the plan of care. Please let me know if there are questions or concerns regarding this plan of care. Physician Signature: Date:
== END 2021-08-17 19:00 | disposition home or self-care (01) ==
LOC: PT 15:57
PROVIDERS: PCP Nurse Practitioner Family; Referring Provider Physician Assistant; Visit Provider Physician Assistant
DX: M70.62 Trochanteric bursitis, left hip (principal); M76.32 Iliotibial band syndrome, left leg; M76.52 Patellar tendinitis, left knee
CPT/HCPCS: 97161